=== PATIENT | female | born 1995 | race Caucasian/White ===

== ENCOUNTER 2022-07-21 15:46 | Emergency (ER) | payer OTHER, SELFPAY ==
[2022-07-21 16:17] LABS: Bilirubin Small (Negative); Blood, Urine Small (Negative); Clarity Cloudy (Clear); Glucose, Urine (Dipstick) Negative (Negative); Ketone, Urine Negative (Negative); Leukocyte Negative (Negative); Nitrite Negative (Negative); Protein, Urine (Dipstick) 30 mg/dL (Neg-Trace); Urobilinogen 0.2 mg/dL (Less than 2); pH, Urine 5.5 (5.0-9.0)
[2022-07-21 16:18] LABS: Specific Gravity, Urine 1.039 (1.002-1.036)
[2022-07-21 16:19] LABS: Pregnancy Test - Urine (BHCG) Negative (Negative); Pregu Control Background? CLEAR/WHITE (CLR/WHITE); Pregu Control Bar Appear? YES (CONTROL BAR); Specific Gravity 1.039 (1.002-1.036)
[2022-07-21 16:22] LABS: Bacteria/HPF 3+ HPF (None Seen)
[2022-07-21 16:23] LABS: Mucous/LPF 1+ LPF (<2+)
[2022-07-21] MEDS ORDERED: Ketorolac Tromethamine 30 MG/ML VIAL ONE (16:37)
[2022-07-21] MEDS ORDERED: Nitrofurantoin Monohyd/M-Cryst 100 MG CAP ONE (16:37)
[2022-07-22 11:25] LABS: Chlamydia by PCR Not Detected (NotDetected); GC by PCR Not Detected (NotDetected)
== END 2022-07-21 16:52 | disposition home or self-care (01) ==
LOC: BURERS 15:46
DX: N39.0 Urinary tract infection, site not specified (principal)
CPT/HCPCS: 81003; 81015; 81025; 87480; 87491; 87510; 87591; 87660; 99283; J1885

== ENCOUNTER 2022-10-11 16:53 | Emergency (ER) | payer OTHER ==
[2022-10-11 17:48] LABS: Bilirubin Small (Negative); Blood, Urine Negative (Negative); Clarity Slightly Cloudy (Clear); Glucose, Urine (Dipstick) Negative (Negative); Ketone, Urine 40 mg/dL (Negative); Leukocyte Negative (Negative); Nitrite Negative (Negative); Protein, Urine (Dipstick) 30 mg/dL (Neg-Trace); Specific Gravity, Urine 1.025 (1.005-1.030); Urobilinogen > or = 8.0 mg/dL (Less than 2)
[2022-10-11 17:57] LABS: Bacteria/HPF 1+ HPF (None Seen); RBC/HPF None Seen HPF (0-3); WBC/HPF None Seen HPF (0-3)
[2022-10-11 17:58] LABS: Mucous/LPF Few LPF (<2+)
[2022-10-11] MEDS ORDERED: Bisacodyl 10 MG SUPP ONE (18:05)
== END 2022-10-11 18:10 | disposition home or self-care (01) ==
LOC: BURERS 16:53
DX: K59.00 Constipation, unspecified (principal)
CPT/HCPCS: 81003; 81015; 99284

== ENCOUNTER 2023-01-09 20:09 | Emergency (ER) | payer OTHER ==
[~2023-01-09 20:09] MED LIST: Iopamidol 370 76% 100 ML VIAL ONE
[2023-01-09] MEDS ORDERED: Ondansetron PF 4 MG/2 ML Vial ONE (20:48)
[2023-01-09] MEDS ORDERED: Fentanyl 100 MCG/2 ML VIAL ONE ×2 (20:48→21:42)
[2023-01-09 20:55] LABS: BHCG - Serum Negative (NEGATIVE); Pregs Control Background? CLEAR/WHITE (CLR/WHITE); Pregs Control Bar Appear? YES (CONTROL BAR)
[2023-01-09 21:00] LABS: Hemoglobin 15.2 g/dL (12.0-16.0); Mean Corpuscular HGB CONC 33.9 g/dL (32.0-36.0); Mean Corpuscular Hemoglobin 27.8 pg (27.0-31.0); Mean Platelet Volume 7.4 fL (7.4-10.4); Platelet Count 370 10x3/uL (130-400); RBC Distribution Width 12.6 % (11.5-14.5); Red Blood Cell (RBC) Count 5.47 mill/uL (4.20-5.40); White Blood Cell (WBC) Count 16.4 10x3/uL (4.8-10.8)
[2023-01-09 21:03] LABS: Band 3 % (5-11); Eosinophils 8 % (0-10); Lymphocytes 11 % (21-51); MDiff Complete? YES; Monocytes 5 % (0-10); Neutrophil 72 % (42-75)
[2023-01-09 21:04] LABS: ALT (SGPT) 22 U/L (8-55); AST (SGOT) 13 U/L (5-34); Albumin 4.2 g/dL (3.5-5.0); Alkaline Phosphatase 80 U/L (40-110); Anion Gap 16 mmol/L (10-20); BUN (Urea Nitrogen) 6 mg/dL (7.0-18.7); Bilirubin, Total 1.2 mg/dL (0.2-1.2); Calc. Creatinine Clearance 0 mL/min (70-130); Calcium 9.1 mg/dL (7.8-10.44); Carbon Dioxide 22 mmol/L (22-29); Chloride 103 mmol/L (98-107); Estimated GFR 120; Globulin 3.6 g/dL (2.4-3.5); Glucose 114 mg/dL (70-105); Lipase 18 U/L (8-78); Potassium 4.1 mmol/L (3.5-5.1); Protein, Total 7.8 g/dL (6.0-8.3); Sodium 137 mmol/L (136-145)
[2023-01-09] MEDS ORDERED: Piperacillin/Tazobactam 4.5 GM VIAL ONE (21:42)
[2023-01-09 21:59] LABS: Bilirubin Negative (Negative); Blood, Urine Negative (Negative); Clarity Clear (Clear); Glucose, Urine (Dipstick) Negative (Negative); Ketone, Urine 40 mg/dL (Negative); Leukocyte Negative (Negative); Nitrite Negative (Negative); Protein, Urine (Dipstick) Negative (Neg-Trace); Specific Gravity, Urine 1.015 (1.005-1.030); Urobilinogen 0.2 mg/dL (Less than 2); pH, Urine 7.5 (5.0-9.0)
== END 2023-01-09 22:10 | disposition short-term general hospital (02) ==
LOC: BURERS 20:09
DX: N83.201 Unspecified ovarian cyst, right side (principal); R11.2 Nausea with vomiting, unspecified; D72.829 Elevated white blood cell count, unspecified
CPT/HCPCS: 74177; 80053; 81003; 83690; 84703; 85025; 96365; 96375; 96376; J2405; J2543; J3010; Q9967